=== PATIENT | female | born 1940 | race Caucasian/White ===

== ENCOUNTER → 2017-12-07 | Outpatient (CLI) | payer MEDICARE ==
[~2017-12-07] MED LIST: ADULT LOW DOSE81 MG PO; AMBIEN 5 MG TABL5 M1 PO; AMITRIPTYLINE H10 M3 PO; AMLODIPINE BESY10 MG PO; AMLODIPINE BESYL5 M1 PER TUBE; DIOVAN160 MG PO; HYDROCHLOROTHIA25 M2 PO; LOSARTAN-HCTZ1 EAC1 PO; NORCO 5-325 TA1 EACH PO; OMEPRAZOLE40 MG PO; PENICILLIN V P500 MG PO; PROZAC10 MG PO; SINGULAIR 10 MG10 M1 PO; VENTOLIN HFA 1818 GM INH; VITAMIN D3400 UNIT PO
== END ==
LOC: M.RAD 10:51
DX: M47.894 Other spondylosis, thoracic region (principal); M47.892 Other spondylosis, cervical region

== ENCOUNTER → 2017-12-27 | Outpatient (CLI) | payer MEDICARE ==
--- NOTE | 2018-01-04 08:21 | PAINCON ---
[address] [address] PAIN MANAGEMENT CONSULTATION Name: VIELKAYING P Room: [facility]#: [id number] Admission: 12/27/17 Attend Phys: Choco Simpson MD Discharge: Date of : 44 Report #: [id number] THIS REPORT FOR: //name// CC: Celestino Simpson DATE OF SERVICE: 12/27/2017 CHIEF COMPLAINT: Pain in the neck and upper spine. HISTORY OF PRESENT ILLNESS: The patient is a 77-year-old female, who has been referred to the Pain Clinic for evaluation. The patient has had noticed pain since 11/30/2017. She states that she is having pain in her neck, upper back as well as into her shoulders. She was carrying 2 heavy baskets. She was moving some items. She was carrying them for about a one-half block. She noticed that after stopping and continuing to hold these items, pain in her upper neck, back and in her shoulders. She notes that her pain is a bit better at this juncture. She has been given a Medrol Dosepak. She is unable to take nonsteroidal anti-inflammatory medications because of irritation these caused to her stomach. Notes that the pain is worse with activities that involve lifting or standing with her arms forward. Also standing with her hands in a dependent position cause some discomfort. Pain is better when she is inactive or when she is applying heat and cold compresses. She describes it as continuous, burning, pulling, and stabbing. Rates it as a 5-6 at this point and can rise to the level of 9. She has tried hydrocodone and finds that this is somewhat helpful, taking about 2 of these tablets per day, 5/325. She denies any significant bowel or bladder dysfunction at this juncture. ALLERGIES: TETRACYCLINE, DOXYCYCLINE, ERYTHROMYCIN BASE. CURRENT MEDICATIONS: Albuterol 2 puffs q. 6 hours p.r.n., amlodipine 10 mg 1 tablet daily, vitamin D3 400 units daily, Prozac 10 mg daily, total of 20 mg, hydrocodone 5/325 one q. 4-6 hours p.r.n. pain, Hyzaar 10/25, Singulair 10 mg at bedtime, and Ambien 5 mg, total of 10 mg at bedtime. PAST MEDICAL HISTORY: Prediabetes, asthma, hypertension, thyroid disease with cysts, colon problems, joint disease/arthritis. PAST SURGICAL HISTORY: Cholecystectomy in 01/2015, hernia repair in 01/2014, colectomy in 12/2009, and hysterectomy in 01/2006. SOCIAL HISTORY: She is retired. She is . REVIEW OF SYSTEMS: Questionnaire in the chart indicate some change in weight gain, headaches, wears glasses, glaucoma/cataracts, occasional palpitations, [place] [address] PAIN MANAGEMENT CONSULTATION Name: YING VORA Zuleika Room: [facility]#: [id number] Admission: 12/27/17 Attend Phys: Choco Simpson MD Discharge: Date of : 44 Report #: [id number] occasional swelling of feet, ankles and hands, asthma, wheezing. Musculoskeletal: Joint pain, joint stiffness and swelling, muscle pain and cramping, frequent and recurring headaches. PAIN CLINIC ASSESSMENT: 1. The patient does suffer from osteoarthritis. 2. Height 5 feet 7 inches, weight 191 pounds, BMI is 30. 3. Vitals: Blood pressure 148/53, heart rate 97, respiratory rate 16, room air saturation 95%, temperature 98.5. 4. Pain intensity zero today, notes increase with activity. 5. Fall risk: The patient has not fallen in the last 3 months. 6. Blood thinner: The patient is not on a blood thinner. 7. Hypertension: The patient is being treated for hypertension. 8. Opioid therapy greater than 6 weeks: The patient is not on opioid therapy greater than 6 weeks. 9. Rest risk assessment tool. 10. Functional assessment tool. 11. Recreational drug use: The patient denies use of recreational drugs. 12. Tobacco use: The patient denies use of tobacco. 13. Alcohol: The patient denies use of alcoholic beverages. PHYSICAL EXAMINATION: GENERAL: The patient is a well-developed, white female. The patient appears her stated age. ORIENTATION: The patient is alert and oriented x 3. AFFECT: The patient's affect is appropriate. HEENT: Normocephalic, atraumatic. Extraocular eye muscles intact. Hearing within normal limits. Mucous membranes moist. Eyes nonicteric. NECK: Without adenopathy, JVD or bruits. The patient has some soreness and tenderness in the area of the scapulas and trapezius muscles, anterior and posterior. She has some discomfort in the area of the clavicular areas, some paraspinous muscles tenderness at T1 through approximately T7. Palpation in these areas can reproduce pain and discomfort, myofascial nature. UPPER EXTREMITIES: Muscle strength is judged to be 5/5 for the major muscle groups of the upper extremities. Deep tendon reflexes are +1 for the biceps bilaterally. Difficult to appreciate the brachioradialis and triceps. LUNGS: Clear to auscultation. HEART: Regular rate. ABDOMEN: Protuberant, nontender. MUSCULOSKELETAL: Shows relatively normal structure without significant kyphosis, scoliosis or lumbar lordosis. Lower extremity muscle strength is judged to be 5/5 and symmetrical. No complaints of lower extremity weakness or neurological changes. IMPRESSION: Upper anterior neck scapular and trapezius pain. The patient feels that the left side is worse than the right. [place] [address] PAIN MANAGEMENT CONSULTATION Name: YING VORA [id number] Admission: 12/27/17 Attend Phys: Choco Simpson MD Discharge: Date of : 44 Report #: [id number] the area of her "collar bones." LABORATORY AND IMAGING DATA: MRI of the cervical spine dated 10/17/2017 reveals: 1. C4-C5: There is disk degeneration, disk space narrowing and broad central annular disk bulge. There are large marginal osteophyte projections from the posterior margins of the vertebral endplates and facet joints contributing to flattening of the anterior thecal sac. Mild spinal canal stenosis and [id number] neural foraminal narrowing bilaterally. No significant cervical cord compression is present. The thecal sac 0.8 cm AP. 2. C5-C6: Disk degeneration and degenerative spondylosis producing mild flattening of the thecal sac without cervical cord compression or significant spinal stenosis or foraminal narrowing. Thecal sac 1 cm AP. 3. C6-C7: Degenerative disk with central annular disk bulge and degenerative spondylosis, produces mild flattening of the anterior thecal sac without cervical cord compression, spinal stenosis or foraminal narrowing. The thecal sac 1.0 cm AP. 4. C7-T1: Intervertebral disk, facet and foraminal areas appear normal. Thecal sac 1.2 cm AP. IMPRESSION: Respiratory/asthma problems, depression, and hypertension. RECOMMENDATIONS: We discussed the treatment options with the patient. She states that she was carrying a heavy load on both left and right hand. After holding these objects for a period of time and walking about one-half block, she noticed some worsening of her pain and discomfort. It involves her shoulders and seems muscular at this juncture. She also has some pain and discomfort in the anterior area near the clavicles that she describes. She has improved after a Medrol Dosepak. We would recommend that she try amitriptyline 10 mg at bedtime; hopefully, this will help some of the pain and discomfort. If she continues to have pain and discomfort, we could consider injecting areas in her shoulders if we are able to locate trigger points. The patient will follow up in the near future. We would like to thank you for letting us participate in her care. We hope she continues to improve. <ELECTRONICALLY SIGNED> By: Choco Simpson MD 01/04/18 [id number]. Remigio Simpson MD /nt
== END ==
LOC: M.PC 01:47
DX: M47.892 Other spondylosis, cervical region (principal); M48.02 Spinal stenosis, cervical region; M25.78 Osteophyte, vertebrae; M50.321 Other cervical disc degeneration at C4-C5 level